=== PATIENT | male | born 2005 | race Caucasian/White ===

== ENCOUNTER 2025-04-10 10:22 | Emergency (ER) | payer OTHER ==
[~2025-04-10] VITALS: Ht 182.9 cm; Wt 87.6 kg
[2025-04-10 13:58] VITALS: BP 124/56; TEMP 97.2; O2SAT 100
[2025-04-10] MEDS ORDERED: ISOVUE-370 76% 100 ML VIAL As Ordered ONE (13:58)
[2025-04-10 14:00] LABS: BASO # 0.0 10^3/uL (0.0-0.2); BASO % 0.4 % (0.0-1.0); EOS # 0.4 10^3/uL (0.0-0.5); EOS % 3.7 % (0.0-3.0); LYMPH # 3.1 10^3/uL (1.5-5.0); LYMPH % 32.6 % (24.0-44.0); MONO # 0.7 10^3/uL (0.0-0.8); MONO % 7.7 % (2.0-8.0); NEUTROPHILS # 5.3 10^3/uL (1.5-8.5); NEUTROPHILS % 55.3 % (36.0-66.0); PLATELET COUNT, AUTOMATED 355 10^3/uL (150-450)
[2025-04-10 14:21] LABS: CK-MB VALUE MASS 1.7 NG/ML (<3.6)
[2025-04-10 14:28] LABS: CPK CREATINE PHOSPHOKINASE 241 U/L (46-171); MB/CK RELATIVE INDEX 0.70 (< OR =4)
[2025-04-10] MEDS ORDERED: DOXY-440 PO (14:37)
== END 2025-04-10 15:01 | disposition home or self-care (01) ==
LOC: M ED 10:22
DX: R07.89 Other chest pain (principal); J18.9 Pneumonia, unspecified organism; R00.1 Bradycardia, unspecified; I44.5 Left posterior fascicular block; Z88.0 Allergy status to penicillin; Z91.013 Allergy to seafood; Z79.2 Long term (current) use of antibiotics
CPT/HCPCS: 36415; 71275; 80047; 82550; 82553; 84484; 85025; 93005; 99284; Q9967

== ENCOUNTER 2025-04-15 07:13 | Emergency (ER) | payer OTHER ==
[~2025-04-15] VITALS: Ht 182.9 cm; Wt 85.7 kg
[~2025-04-15 07:13] MED LIST: DOXY-440 PO
[2025-04-15 07:15] VITALS: TEMP 97.2
[2025-04-15] MEDS ORDERED: VENTAER INH (07:47)
[2025-04-15 07:57] VITALS: BP 132/68; O2SAT 100
== END 2025-04-15 07:59 | disposition home or self-care (01) ==
LOC: M ED 07:13
DX: R06.02 Shortness of breath (principal); Z88.0 Allergy status to penicillin; Z91.013 Allergy to seafood; Z79.2 Long term (current) use of antibiotics; Z79.51 Long term (current) use of inhaled steroids

== ENCOUNTER → 2025-06-24 | Outpatient (CLI) | payer OTHER ==
[~2025-06-24] MED LIST changes: +VENTAER INH
== END ==
LOC: M CARPUL 10:02
PROVIDERS: ATTEND Physician Assistant
DX: R06.02 Shortness of breath (principal); R07.9 Chest pain, unspecified